=== PATIENT | female | born 1960 | race Caucasian/White ===

== ENCOUNTER 2020-07-11 11:29 | Outpatient (CLI) | payer BC, SELFPAY ==
[2020-07-11 11:52] LABS: Basophils Absolute Auto 0.1 K/mm3 (0.0-0.1); Eosinophils Absolute Auto 0.2 K/mm3 (0-0.3); Eosinophils Percent Auto 2.3 % (0-4.4); Hematocrit 37.9 % (37.0-47.0); Hemoglobin 12.1 g/dL (12.0-15.0); Immature Granulocyte Absolute 0.02 K/mm3 (0.00-0.031); Immature Granulocyte Percent A 0.3 % (0-0.5); Lymphocytes Absolute Auto 1.64 K/mm3 (0.9-3.2); Lymphocytes Percent Auto 22.6 % (18.3-44.2); Mean Corpuscular HGB Conc 31.9 g/dl (32-36); Mean Corpuscular Hemoglobin 29.6 pg (26-34); Mean Corpuscular Volume 92.7 fl (80-100); Mean Platelet Volume 9.6 fl (7.4-10.4); Monocytes Absolute Auto 0.5 K/mm3 (0.1-0.6); Monocytes Percent Auto 7.2 % (2.6-8.5); Neutrophils Absolute Auto 4.9 K/mm3 (1.3-6.7); Neutrophils Percent Auto 66.6 % (45.5-73.1); Platelet Count Result 457 k/mm3 (150-375); Red Blood Count 4.09 M/mm3 (4.2-5.4); Red Cell Distribution Width 12.8 % (11.5-14.5); White Blood Count 7.3 K/mm3 (4.5-10.0)
== END 2020-07-11 11:30 | disposition home or self-care (01) ==
LOC: ANHLAB 11:31
PROVIDERS: PCP Family Medicine; Visit Provider Internal Medicine Hematology & Oncology
DX: D47.3 Essential (hemorrhagic) thrombocythemia (principal)
CPT/HCPCS: 36415; 85025

== ENCOUNTER → 2020-07-25 07:58 | Outpatient (CLI) | payer BC, SELFPAY ==
--- NOTE | ~2020-07-25 | US_ITS ---
EXAMINATION:US venous doppler LE RT INDICATION:Right calf pain TECHNIQUE: Multiple grayscale, color flow and Doppler images of the right lower extremity deep venous systems were obtained and reviewed. COMPARISON:No prior studies for comparison. FINDINGS: The common femoral, superficial femoral and popliteal veins demonstrate normal respiratory variation, augmentation and compressibility. Color flow is also seen within the posterior tibial, pe roneal, greater saphenous and profunda veins. IMPRESSION: 1: No lower extremity deep venous thrombosis. Reviewed, dictated and finalized at location A. [employer]
== END ==
PROVIDERS: PCP Family Medicine; Visit Provider Nurse Practitioner Adult Health
DX: M79.661 Pain in right lower leg (principal)
CPT/HCPCS: 93971

== ENCOUNTER 2021-01-10 15:00 | Outpatient (CLI) | payer BC, SELFPAY ==
[2021-01-10 15:15] LABS: Basophils Absolute Auto 0.1 K/mm3 (0.0-0.1); Basophils Percent Auto 0.8 % (0.2-1.2); Eosinophils Absolute Auto 0.2 K/mm3 (0-0.3); Eosinophils Percent Auto 2.9 % (0-4.4); Hematocrit 37.9 % (37.0-47.0); Hemoglobin 12.2 g/dL (12.0-15.0); Immature Granulocyte Absolute 0.02 K/mm3 (0.00-0.031); Immature Granulocyte Percent A 0.3 % (0-0.5); Lymphocytes Percent Auto 22.5 % (18.3-44.2); Mean Corpuscular HGB Conc 32.2 g/dl (32-36); Mean Corpuscular Hemoglobin 29.4 pg (26-34); Mean Corpuscular Volume 91.3 fl (80-100); Mean Platelet Volume 9.4 fl (7.4-10.4); Monocytes Absolute Auto 0.6 K/mm3 (0.1-0.6); Monocytes Percent Auto 7.9 % (2.6-8.5); Neutrophils Absolute Auto 5.3 K/mm3 (1.3-6.7); Neutrophils Percent Auto 65.6 % (45.5-73.1); Platelet Count Result 478 k/mm3 (150-375); Red Blood Count 4.15 M/mm3 (4.2-5.4)
[2021-01-10 15:19] LABS: Blood Urea Nitrogen 15 mg/dL (8-26); Carbon Dioxide 25 mmol/L (22-30); Chloride 100 mmol/L (98-109); Estimated Glomerular Filt Rate > 60; Glucose 106 mg/dL (70-105); Sodium 139 mmol/L (138-146)
[2021-01-10 16:52] LABS: Alanine Aminotransferase 11 U/L (4-35); Albumin Level 4.4 g/dL (3.5-5.1); Alkaline Phosphatase 46 U/L (38-126); Anion Gap 9 mmol/L (8-16); Aspartate Amino Transferase 20 U/L (14-36); Bilirubin,Total 0.3 mg/dL (0.2-1.3); Blood Urea Nitrogen 16 mg/dL (7-17); Calcium 9.9 mg/dL (8.4-10.2); Carbon Dioxide 26 mmol/L (22-30); Chloride 103 mmol/L (98-107); Estimated Glomerular Filt Rate > 60; Glucose 108 mg/dL (65-105); Potassium 4.5 mmol/L (3.4-5.0); Sodium 138 mmol/L (137-145)
== END 2021-01-10 15:01 | disposition home or self-care (01) ==
LOC: ANHLAB 15:03
PROVIDERS: PCP Family Medicine; Visit Provider Internal Medicine Hematology & Oncology
DX: D47.3 Essential (hemorrhagic) thrombocythemia (principal)
CPT/HCPCS: 36415; 80048; 80053; 85025

== ENCOUNTER 2023-05-01 08:48 | Outpatient (CLI) | payer BC, SELFPAY ==
[2023-05-01 09:01] LABS: Basophils Absolute Auto 0.1 K/mm3 (0.0-0.1); Basophils Percent Auto 1.3 % (0.2-1.2); Eosinophils Absolute Auto 0.3 K/mm3 (0-0.3); Eosinophils Percent Auto 5.6 % (0-4.4); Hematocrit 37.9 % (37.0-47.0); Hemoglobin 12.2 g/dL (12.0-15.0); Immature Granulocyte Absolute 0.01 K/mm3 (0.00-0.031); Immature Granulocyte Percent A 0.2 % (0-0.5); Lymphocytes Absolute Auto 1.06 K/mm3 (0.9-3.2); Lymphocytes Percent Auto 22.7 % (18.3-44.2); Mean Corpuscular HGB Conc 32.2 g/dl (32-36); Mean Corpuscular Hemoglobin 31.9 pg (26-34); Mean Corpuscular Volume 99.2 fl (80-100); Mean Platelet Volume 9.3 fl (7.4-10.4); Monocytes Absolute Auto 0.6 K/mm3 (0.1-0.6); Neutrophils Absolute Auto 2.7 K/mm3 (1.3-6.7); Neutrophils Percent Auto 58.2 % (45.5-73.1); Platelet Count Result 409 k/mm3 (150-375); Red Blood Count 3.82 M/mm3 (4.2-5.4); Red Cell Distribution Width 12.2 % (11.5-14.5); White Blood Count 4.7 K/mm3 (4.5-10.0)
[2023-05-01 10:49] LABS: Iron 123 ug/dL (37-170)
[2023-05-01 11:00] LABS: Percent Iron Saturation 51 % (20-50)
== END 2023-05-01 08:49 | disposition home or self-care (01) ==
LOC: ANHLAB 08:49
PROVIDERS: Visit Provider Internal Medicine Hematology & Oncology
DX: D50.9 Iron deficiency anemia, unspecified (principal)
CPT/HCPCS: 36415; 82728; 83540; 83550; 85025

== ENCOUNTER 2023-05-24 11:41 | Emergency (ER) | payer BC, SELFPAY ==
[2023-05-24 11:52] VITALS: BP 122/57; PULSE 84; RESP 16; TEMP 37.2; O2SAT 99
--- NOTE | 2023-05-24 12:23 | ED.URI ---
HPI - URI/Sore Throat General Chief Complaint: Upper Respiratory Infection Stated Complaint: ear / sinus issues Time Seen by Provider: 05/24/23 12:15 Source: patient, RN notes reviewed and old records reviewed Mode of arrival: ambulatory Limitations: no limitations History of Present Illness HPI Narrative: 62 year old female who presents to [facility] care with complaint of 3 day history of alot of sinus drainage and pressure with right ear pain and some sore throat. Patient reports that she has had some right sided facial discomfort for the past week. Patient reports that she has been taking aspirin and DayQuil and some cough drops for her symptoms without resolution.Patient reports that she has been having some low grade fevers with her symptoms, denies any body aches. MD elicited complaint: fever (low grade), sore throat, rhinorrhea, nasal congestion, sinus pain and other (right ear pain) Onset (ago): day(s) (3 dayssinus drainage and ear pain and sore throat,1 week right sided facial pain ) Pain scale (0-10): 3 Description of mucous: clear and yellow Able to tolerate fluids by mouth: Yes Treatments prior to arrival: aspirin and other (DayQuil and cough drops) Related Data Home Medications Medication Instructions Recorded Confirmed melatonin 1 mg tablet 1 mg PO HS PRN sleep 12/11/22 05/24/23 aspirin 81 mg capsule 81 mg PO DAILY 05/24/23 05/24/23 Allergies Allergy/AdvReac Type Severity Reaction Status Date / Time No Known Allergies Allergy Verified 05/24/23 11:49 Review of Systems Review of Systems: CONSTITUTIONAL: Reports malaise, chills, sweats, low grade fever. EYES: Denies visual changes, redness, or discharge. ENT: Reports rhinorrhea, congestion, sinus pain, right otalgia and sore throat. CARDIOVASCULAR: Denies chest pain, palpitations, or edema. RESPIRATORY: Reports occasional cough.? Denies dyspnea. GASTROINTESTINAL: Denies abdominal pain, nausea, vomiting, diarrhea SKIN: Denies rash or itching. MUSCULOSKELETAL: Denies myalgia. NEUROLOGIC: Denies headache. All systems reviewed & are unremarkable except as noted in HPI and below PMFSH Past Medical History Medical History Acute pain of right knee Dietary counseling and surveillance (05/17/17) Elevated platelet count Hyperlipidemia, unspecified Malignant neoplasm of unspecified site of left female breast Psoriatic arthritis Right foot pain Routine physical examination Surgical History Surgical History History of carpal tunnel surgery of right wrist S/P left rotator cuff repair Status post left breast lumpectomy radiation therapy Family History Family History Father Hypertension Family history of diabetes mellitus in first degree relative Acute myocardial infarction Heart disease Mother Hypertension Breast cancer Sibling Diabetes mellitus Hypertension Social History Social History Smoking packs per day: 1 Smoking cigarettes per day: 20.0 Years smoked: 25 Smoking pack-years: 25.00 Smoking status: Former smoker Tobacco type: cigarettes Second hand tobacco smoke exposure: Yes Smoking end date: 12/01/02 Alcohol intake: current Substance use: never Substance use type: does not use Living arrangements: with family Occupation/Education: occupation 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 Gender identity (if verbalized by the patient): Female Spiritual care concerns: No Comments At time of signature, agree with nursing past medical, surgical, social and family history. There is no relevant family history pertinent to the presenting complaint Exam Narrative: GENERAL: Well-appearing, well-nourished, and in no acute distress. HEAD: Normocepha
== END 2023-05-24 12:40 | disposition home or self-care (01) ==
PROVIDERS: Emergency Provider Registered Nurse; PCP Family Medicine
DX: J32.9 Chronic sinusitis, unspecified (principal); Z87.891 Personal history of nicotine dependence; E78.5 Hyperlipidemia, unspecified; L40.50 Arthropathic psoriasis, unspecified; Z85.3 Personal history of malignant neoplasm of breast; Z90.12 Acquired absence of left breast and nipple
CPT/HCPCS: 99213; G0463

== ENCOUNTER 2023-11-08 08:03 | Outpatient (CLI) | payer BC, SELFPAY ==
[2023-11-08 08:23] LABS: Basophils Absolute Auto 0.1 K/mm3 (0.0-0.1); Eosinophils Absolute Auto 0.2 K/mm3 (0-0.3); Eosinophils Percent Auto 4.4 % (0-4.4); Hematocrit 38.8 % (37.0-47.0); Hemoglobin 12.6 g/dL (12.0-15.0); Immature Granulocyte Absolute 0.01 K/mm3 (0.00-0.031); Immature Granulocyte Percent A 0.2 % (0-0.5); Lymphocytes Absolute Auto 0.99 K/mm3 (0.9-3.2); Lymphocytes Percent Auto 20.8 % (18.3-44.2); Mean Corpuscular HGB Conc 32.5 g/dl (32-36); Mean Corpuscular Hemoglobin 31.3 pg (26-34); Mean Corpuscular Volume 96.5 fl (80-100); Mean Platelet Volume 9.1 fl (7.4-10.4); Monocytes Absolute Auto 0.5 K/mm3 (0.1-0.6); Monocytes Percent Auto 10.3 % (2.6-8.5); Neutrophils Percent Auto 63.3 % (45.5-73.1); Platelet Count Result 426 k/mm3 (150-375); Red Blood Count 4.02 M/mm3 (4.2-5.4); Red Cell Distribution Width 12.4 % (11.5-14.5); White Blood Count 4.8 K/mm3 (4.5-10.0)
[2023-11-08 08:28] LABS: Blood Urea Nitrogen 12 mg/dL (8-26); Carbon Dioxide 29 mmol/L (22-30); Chloride 101 mmol/L (98-109); Estimated Glomerular Filt Rate > 60; Glucose 100 mg/dL (70-105); Ionized Calcium (POC) 1.19 mmol/L (1.11-1.31); Potassium 4.4 mmol/L (3.5-4.9); Sodium 139 mmol/L (138-146)
== END 2023-11-08 08:04 | disposition home or self-care (01) ==
LOC: ANHLAB 08:05
PROVIDERS: PCP Family Medicine; Visit Provider Internal Medicine Hematology & Oncology
DX: D50.9 Iron deficiency anemia, unspecified (principal)
CPT/HCPCS: 36415; 80047; 85025

== ENCOUNTER 2024-03-14 07:18 | Outpatient (CLI) | payer BC, SELFPAY ==
--- NOTE | ~2024-03-14 | US_ITS ---
EXAMINATION: US soft tissue head and neck DATE: 03/14/2024 07:35 INDICATION: Soft palpable mass at the left shoulder. TECHNIQUE: Multiple grayscale and Doppler ultrasound images of the region of concern at the left shou lder were obtained. COMPARISON: None FINDINGS: At the region of concern is a 5.8 x 5.6 x 1.1 cm subcutaneous mass which is isoechoic and with identi caprice echotexture and septated architecture as the surrounding subcutaneous fat. No other abnormal mass es or fluid collections identified. IMPRESSION: 1. 5.8 x 5.6 x 1.1 cm subcutaneous mass at the region of concern with appearance most consistent with and statistically most likely to represent a lipoma. Reviewed, dictated and finalized at location A. IMPRESSION: 1. 5.8 x 5.6 x 1.1 cm subcutaneous mass at the region of concern with appearanc e most consistent with and statistically most likely to represent a lipoma.
== END 2024-03-14 07:19 ==
LOC: MICIMG 07:20
PROVIDERS: PCP Family Medicine
DX: R22.32 Localized swelling, mass and lump, left upper limb (principal); Z98.890 Other specified postprocedural states
CPT/HCPCS: 76536

== ENCOUNTER 2024-04-10 06:57 | Outpatient (CLI) | payer BC, SELFPAY ==
--- NOTE | ~2024-04-10 | MR_ITS ---
MRI of the left shoulder Technique: Axial proton-density fat-sat images, coronal proton density fat-sat and T2 fat-sat images, and sagittal T1-weighted and T2 fat-sat images were acquired. Clinical History: Pain Findings: No significant degenerative change at the AC joint. Possible prior subacromial decompressio n with resection of distal clavicle. Coracoclavicular, coracoacromial, and coracohumeral ligaments ap pear intact. There is focal moderate grade articular surface partial tearing at the posterior, distal supraspinatu s tendon insertion region. There is moderate to advanced supraspinatus stenosis. Infraspinatus tendon is intact, without partial or full-thickness tear. Subscapularis tendon is intact, with mild to mode rate tendinosis. Tendon of long head of the biceps is intact. There is probable superior labral tear extending to the anterosuperior and anterior portions. There i s also probable extension of tear to the posterior superior portion of the labrum. Inferior glenohumeral ligament is intact. There is inferior medial humeral head osteophyte with mild chondral thinning of the glenohumeral joint. Small glenohumeral joint effusion present. No fluid dist ention of the subacromial/subdeltoid bursa. No muscle atrophy or edema. Impression: Focal moderate grade articular surface partial tear of the posterior, distal supraspinatus tendon ins ertion region. Moderate to advanced supraspinatus tendinosis. Mild to moderate subscapularis tendinos is. Probable SLAP tear of the labrum extending to the anterior portion of the labrum at the equator. Degenerative change of the glenohumeral joint, as above. Probable prior subacromial decompression/dis pam clavicular resection. Reviewed, dictated and finalized at [facility]. Impression: Focal moderate grade articular surface partial tear of the posterior, distal gupta praspinatus tendon insertion region. Moderate to advanced supraspinatus tendino sis. Mild to moderate subscapularis tendinosis. Probable SLAP tear of the labrum extending to the anterior portion of the labru m at the equator. Degenerative change of the glenohumeral joint, as above. Probable prior subacro mial decompression/distal clavicular resection.
== END 2024-04-10 06:58 | disposition home or self-care (01) ==
LOC: MICIMG 06:58
PROVIDERS: PCP Family Medicine
DX: M19.012 Primary osteoarthritis, left shoulder (principal); Z98.890 Other specified postprocedural states
CPT/HCPCS: 73221